=== PATIENT | male | born 1945 | race Caucasian/White ===

== ENCOUNTER → 2017-10-16 10:58 | Outpatient (CLI) | payer MEDICARE, MEDICAID, SELFPAY ==
[2017-10-16 13:16] LABS: Thyroid Stim Hormone (TSH) 3.03 uIU/mL (0.358-3.74)
== END ==
PROVIDERS: Family Provider Family Medicine; PCP Family Medicine; Visit Provider Family Medicine
DX: E03.9 Hypothyroidism, unspecified (principal)
CPT/HCPCS: 36415; 84443

== ENCOUNTER → 2018-04-18 11:31 | Outpatient (CLI) | payer MEDICARE, MEDICAID, SELFPAY ==
[2018-04-18 14:59] LABS: AST(SGOT) 22 U/L (15-37); Alanine Aminotransfer ALT/SGPT 27 U/L (16-61); Albumin, Serum 3.7 g/dL (3.2-5.0); Alkaline Phosphatase 91 U/L (45-117); Cholesterol 181 mg/dL (200); Free T3 2.9 pg/mL (2.18-3.98); Globulin 3.9 g/dL (2.2-4.2); High Density Lipoprotein 59 mg/dL; Protein, Total 7.6 g/dL (6.4-8.2); T4 Free Direct 0.95 ng/dL (0.76-1.46); Thyroid Stim Hormone (TSH) 3.46 uIU/mL (0.358-3.74); Triglycerides 102 mg/dL; Very Low Density Lipoprotein 20 mg/dL (5-40)
== END ==
PROVIDERS: Family Provider Family Medicine; PCP Family Medicine; Visit Provider Family Medicine
DX: E78.5 Hyperlipidemia, unspecified (principal); E03.9 Hypothyroidism, unspecified
CPT/HCPCS: 36415; 80061; 80076; 84439; 84443; 84481

== ENCOUNTER → 2018-10-17 10:33 | Outpatient (CLI) | payer MEDICARE, MEDICAID, SELFPAY ==
[2018-10-17 13:15] LABS: Anion Gap 9 (5-15); BUN 23 mg/dL (7-18); BUN/Creat Ratio 17.7 RATIO (10-20); Calcium,Total 8.7 mg/dL (8.5-10.1); Chloride 106 mmol/L (98-107); Cholesterol 186 mg/dL (200); EST Glomerular Filtration Rate 57 mL/min (>60); Est Glom Filt Rate - Afr Amer 69 mL/min (>60); Glucose 95 mg/dL (74-106); High Density Lipoprotein 63 mg/dL; Potassium 4.3 mmol/L (3.5-5.1); Sodium Level 138 mmol/L (136-145); Thyroid Stim Hormone (TSH) 3.69 uIU/mL (0.358-3.74); Triglycerides 82 mg/dL; Very Low Density Lipoprotein 16 mg/dL (5-40)
== END ==
PROVIDERS: Family Provider Family Medicine; PCP Family Medicine; Referring Provider Family Medicine; Visit Provider Family Medicine
DX: Z00.00 Encounter for general adult medical examination without abnormal findings (principal); E03.9 Hypothyroidism, unspecified
CPT/HCPCS: 36415; 80048; 80061; 84443

== ENCOUNTER → 2018-10-31 07:48 | Outpatient (CLI) | payer MEDICARE, MEDICAID, SELFPAY ==
[2018-10-24 10:21] VITALS: BMI 28.8
--- NOTE | 2018-10-31 07:52 | CT_ITS ---
STUDY: CT ABDOMEN AND PELVIS WITHOUT CONTRAST REASON FOR EXAM: Male, 72 years old. Left upper quadrant pain RADIATION DOSAGE (If Supplied By Facility): CTDIvol = ( 9.06 ) mGy, DLP = ( 461.89 ) mGycm TECHNIQUE: Transaxial images were obtained from the dome of the diaphragm to the symphysis pubis without oral contrast, and without intravenous contrast. Sagittal and coronal images were reconstructed. Individualized dose optimization techniques were used for this CT. COMPARISON: CT abdomen and pelvis 05/05/2013. FINDINGS: Lack of intravenous contrast limits evaluation of abdominal and pelvic organs. There is a small posterior left lower lobe calcified granuloma. The visualized portions of the heart are within normal limits. Normal liver. There are multiple gallstones. Normal spleen. Normal pancreas. Normal bilateral adrenal glands. Normal right kidney. There is a stable, partially exophytic left renal upper pole cyst. No hydronephrosis. Normal visualized stomach. Normal small intestine. There is mild sigmoid diverticulosis without evidence of acute diverticulitis.. The appendix is visualized and appears normal. There is diffuse atherosclerotic calcification of the abdominal aorta, without a demonstrated aneurysm. Normal inferior vena cava. Normal retroperitoneum. Normal urinary bladder. The prostate gland is markedly enlarged and indents the urinary bladder base. There is a small umbilical hernia containing fat. Normal osseous structures. CT/Abdomen/Pel W ORAL Cont Only IMPRESSION: No acute abdominal or pelvic pathology. Marked prostatomegaly. Stable chronic findings are described above. Electronically Signed: Sanket Olivia, at 16:22 EDT Tel , Service support ,
== END ==
PROVIDERS: Family Provider Family Medicine; PCP Family Medicine; Referring Provider Surgery; Visit Provider Surgery
DX: R10.9 Unspecified abdominal pain (principal)
CPT/HCPCS: 74176

== ENCOUNTER → 2019-05-02 11:58 | Outpatient (CLI) | payer MEDICARE, MEDICAID, SELFPAY ==
[2018-10-24 10:21] VITALS: BMI 28.8
[2019-05-02 14:25] LABS: Free T3 2.9 pg/mL (2.18-3.98); T4 Total, Thyroxin 6.8 ug/dL (4.5-12.1); Thyroid Stim Hormone (TSH) 3.07 uIU/mL (0.358-3.74)
== END ==
PROVIDERS: Family Provider Family Medicine; PCP Family Medicine; Referring Provider Family Medicine; Visit Provider Family Medicine
DX: E03.9 Hypothyroidism, unspecified (principal)
CPT/HCPCS: 36415; 84436; 84443; 84481

== ENCOUNTER → 2019-12-26 14:42 | Outpatient (CLI) | payer MEDICARE, MEDICAID, SELFPAY ==
[2018-10-24 10:21] VITALS: BMI 28.8
[2019-12-26 17:51] LABS: Anion Gap 6 (5-15); BUN 24 mg/dL (7-18); BUN/Creat Ratio 20.3 RATIO (10-20); Chloride 109 mmol/L (98-107); Cholesterol 179 mg/dL (200); Creatinine, Serum 1.18 mg/dL (0.70-1.30); EST Glomerular Filtration Rate 64 mL/min (>60); Est Glom Filt Rate - Afr Amer 77 mL/min (>60); Free T3 2.9 pg/mL (2.18-3.98); Glucose 93 mg/dL (74-106); High Density Lipoprotein 62 mg/dL; Sodium Level 139 mmol/L (136-145); T4 Total, Thyroxin 7.5 ug/dL (4.5-12.1); Thyroid Stim Hormone (TSH) 2.09 uIU/mL (0.358-3.74); Triglycerides 108 mg/dL; Very Low Density Lipoprotein 22 mg/dL (5-40)
== END ==
PROVIDERS: PCP Family Medicine; Referring Provider Family Medicine; Visit Provider Family Medicine
DX: E03.9 Hypothyroidism, unspecified (principal); E78.5 Hyperlipidemia, unspecified
CPT/HCPCS: 36415; 80048; 80061; 84436; 84443; 84481

== ENCOUNTER → 2020-07-06 18:28 | Outpatient (CLI) | payer MEDICARE, MEDICAID, SELFPAY ==
[2020-03-09 08:57] VITALS: BMI 28.8
== END ==
PROVIDERS: PCP Family Medicine; Visit Provider Family Medicine
DX: U07.1 COVID-19 (principal)
CPT/HCPCS: 87635; U0003

== ENCOUNTER 2020-07-15 11:06 | Emergency (ER) | payer MEDICARE, MEDICAID, SELFPAY ==
[2020-07-11 11:41] VITALS: BMI 28.8
[2020-07-15 11:07] VITALS: BP 153/122; PULSE 109; RESP 20; TEMP 36.6; O2SAT 96; BMI 27.3
[2020-07-15 11:20] VITALS: O2SAT 93
--- NOTE | 2020-07-15 11:25 | EKG12_ITS ---
Test Reason : SOB Blood Pressure : / mmHG Vent. Rate : 077 BPM Atrial Rate : 077 BPM P-R Int : 154 ms QRS Dur : 100 ms QT Int : 422 ms P-R-T Axes : 025 -21 -07 degrees QTc Int : 477 ms Normal sinus rhythm with sinus arrhythmia Possible Left atrial enlargement Left ventricular hypertrophy Abnormal ECG Confirmed by KAREN MARTIN, MARISSA ([id number]), restaurant expeditor KAL WHITAKER ([id number]) on 07/17/2020 2:03:45 PM Referred By: NINA/MAYE Confirmed By:MARISSA JONES MD
--- NOTE | 2020-07-15 11:26 | ED.DCSUM_ITS ---
- ER Visit Summary Date of Service: 07/15/20 Chief Complaint: [Shortness of breath] History of Present Illness: The patient is a 74 M [presents to the emergency department feeling short of breath over the last 3 to 4 days. Patient states that he was diagnosed with COVID-19 on July 06 and he had symptoms beginning on June 29. Patient states that overall he feels like he is had a mild case but he is concerned that his symptoms have been resolved and actually has become more short of breath over last 3 days. Patient states he really has not had much of a cough in the last 2 days but he is trying to breathe shallow so that he does not cough. When he does cough he does bring up some brown phlegm whereas initially his cough was nonproductive. He denies significant fevers and states he has been running temperatures only up to 99 at times. Patient's had intermittent chills and sweats but not over the last 2 days. Patient states that he was seen at urgent care 5 days ago and everything looked good. Patient does have history of COPD, alcohol abuse, chronic kidney disease, and anxiety.] Patient does not wear home O2. Patient does have a home pulse ox and states he has not dropped below 90% while at home. Physical Examination: [HEENT-PERRLA, EOMI. Cranial nerves II through XII grossly intact. TMs clear. Mucous membranes moist. No adenopathy. Cardiovascular-regular rate and rhythm without murmur or ectopy Lungs-good aeration bilaterally with few rales in the bases. No accessory muscle use or retractions. No significant tachypnea. Abdomen-normoactive bowel sounds, soft, nontender, no rebound or rigidity, no peritoneal signs. Extremities-intact ?4, normal range of motion, normal pulses, atraumatic] Test Results: [EKG obtained on arrival showed a sinus rhythm with a ventricular rate of 77 bpm with occasional PACs. Patient was noted to have some LVH. CBC with differential obtained showed a white of 7.5, hemoglobin 16, hematocrit 50, platelets 312. Chemistries were unremarkable. BUN was 16 and creatinine 1.16. Troponin was less than 0.015. D-dimer was elevated at 3.97. Chest x-ray showed some increased markings in the bases on my interpretation with no discrete pneumonic processes noted. Radiology in agreement. CTA of the chest was obtained which showed no evidence of PE or dissection. Patient had a left lower lobe nodule and some bilateral patchy infiltrates consistent with Covid. Could not rule out bacterial pneumonic process especially in the right upper lobe.] Emergency Department Course and Treatment: [Line established on arrival. Patient placed on a traffic monitor specialist.] Treatment Plan: [Patient will be started on Levaquin and advised to follow-up with primary care physician 5 to 7 days. Patient advised to return if increasi ng shortness of breath or condition should worsen anyway.] Disposition: [Discharged home in stable condition] Impression: [ COVID-19 pneumonia Dyspnea] This note was generated with [employer] dictation software. It may contain incorrect words, spelling, and punctuation that were not noted in review of the chart prior to signing ED Disposition - Plan for ED Patient: Referrals: Diego Diaz MD [Primary Care Provider] -
--- NOTE | 2020-07-15 11:40 | RAD_ITS ---
STUDY: X-RAY CHEST REASON FOR EXAM: Male, 74 years old. POSITIVE COVID. INCREASING SOB. TECHNIQUE: Single AP portable view of the chest. COMPARISON: 09/27/2013 FINDINGS: Poor inspiration with some bibasilar atelectasis. Slightly elevated left hemidiaphragm which is unchanged. There is moderate cardiac enlargement. Normal mediastinum and jamee. Normal visualized pulmonary arteries. Normal visualized aortic arch and descending thoracic aorta. Normal visualized thoracic spine. Normal visualized ribs, clavicles, and shoulders. There is no demonstrated abnormality of the visualized soft tissue structures of the upper abdomen. RAD/Chest 1 View (Portable) IMPRESSION: Poor inspiration with some bibasilar atelectasis. Electronically Signed: Kana Montalvo MD at 11:58 EST Tel , Service support ,
[2020-07-15 11:51] LABS: Absolute Lymphocyte Count 1.14 X10^3/uL (0.83-4.51); Absolute Neutrophil Count 5.4 X10^3/uL (2.0-7.7); Basophil# 0.03 X10^3/uL; Basophil% 0.4 % (0-1); Eosinophil# 0.07 X10^3/uL; Eosinophils% 0.9 % (0-5); Hemoglobin 16.1 g/dL (13.0-16.5); Lymphocyte # 1.14 X10^3/ul (4.0); Lymphocyte % 15.3 % (19-41); Mean Corp Hgb Conc 32.2 g/dL (32-36); Mean Corpuscular Hgb 26.6 pg (27.0-32.0); Mean Corpuscular Volume 82.6 fL (80-94); Mean Platelet Vol. 10.1 fl (6.2-12.0); Monocyte# 0.63 X10^3/uL; Monocyte% 8.5 % (0-10); NRBC Flagged by Analyzer 0 % (0-5); Neutrophil # 5.38 X10^3/uL (2.7-7.7); Neutrophil % 72.2 % (47-70); POSITIVE MORPHOLOGY YES; Platelet Count 312 K/mm3 (150-450); RBC Distribution Width CV 13.2 % (11.6-14.6); RBC Distribution Width SD 39.8 fl (35.1-43.9); Red Blood Count 6.05 M/mm3 (4.6-6.2); White Blood Count 7.5 K/mm3 (4.4-11.0)
[2020-07-15 11:58] LABS: Differential Indicated SCAN CRITERIA MET
[2020-07-15 12:03] LABS: D-Dimer Quantitative (DVT/PE) 3.97 FEU/ug/m (0.27-0.49)
--- NOTE | 2020-07-15 12:04 | CT_ITS ---
STUDY: CTA CHEST REASON FOR EXAM: Male, 74 years old. ELEV DDIMER/SOB/COVID + AND COPD RADIATION DOSAGE (If Supplied By Facility): CTDIvol = ( 10.49 ) mGy, DLP = ( 462.44 ) mGycm TECHNIQUE: The examination was performed with the intravenous administration of IV 100mL Isovue-370. Post-processing of the angiographic images was performed, with multiplanar reformation and 3D reconstruction. Individualized dose optimization techniques were used for this CT. COMPARISON: 05/20/2012 FINDINGS: Normal enhancement of the main pulmonary artery and right and left pulmonary arteries. Normal enhancement of the bilateral peripheral pulmonary arteries. There is no demonstrated pulmonary embolism. Normal thoracic aorta and visualized great vessels. There is no demonstrated aortic dissection. Normal heart and pericardium. There are calcifications of the coronary arteries. Normal mediastinum. Normal hilar regions. Normal visualized trachea and bronchi. The lungs are well expanded. Mild emphysematous changes. Bilateral peripheral groundglass opacities consistent with subsegmental atelectasis or pneumonitis. Small focal alveolar density in the superior segment the right lower lobe consistent with pneumonia. Some dependent bibasilar atelectasis and scarring. 6 mm noncalcified nodule subpleural the superior segment left lower lobe the lungs on image 140 one and follow-up CT is recommended in 6 months document stability. Normal pleura. Normal chest wall structures. Normal osseous structures. Normal visualized upper abdomen. CT/CTA Chest W/WO Contrast IMPRESSION: 1. No CT evidence of pulmonary embolism. 2. Bilateral subsegmental atelectasis or pneumonitis with some focal pneumonia in the superior segment the right lower lobe. Commonly reported imaging features of Covid 19 pneumonia are present. Other processes such as influenza pneumonia and organizing pneumonia, as can be seen with drug toxicity and connective tissue disease, can cause a similar imaging pattern. 3. 6 mm noncalcified left lower lobe nodule and follow-up CT the chest is recommended in 6 months document stability. Electronically Signed: Kana Montalvo MD at 13:25 EST Tel , Service support ,
[2020-07-15 12:07] LABS: Anion Gap 10 (5-15); BUN 16 mg/dL (7-18); BUN/Creat Ratio 13.8 RATIO (10-20); Calcium,Total 9.1 mg/dL (8.5-10.1); Chloride 103 mmol/L (98-107); Creatinine, Serum 1.16 mg/dL (0.70-1.30); EST Glomerular Filtration Rate 65 mL/min (>60); Est Glom Filt Rate - Afr Amer 79 mL/min (>60); Glucose 122 mg/dL (74-106); Potassium 3.5 mmol/L (3.5-5.1); Sodium Level 134 mmol/L (136-145)
[2020-07-15 13:12] VITALS: BP 144/99; PULSE 77; RESP 24; O2SAT 93
--- NOTE | 2020-07-15 14:03 | ED.DEP ---
ED Disposition - Plan for ED Patient: Instructions: Coronavirus Disease 2019 (COVID-19): Overview Referrals: Diego Diaz MD [Primary Care Provider] - 3-5 Days
--- NOTE | 2020-07-15 14:58 | ED.DEP ---
ED Disposition - Plan for ED Patient: Instructions: Coronavirus Disease 2019 (COVID-19): Overview Prescriptions: levoFLOXacin tablet [Levaquin tablet] 750 mg PO DAILY #4 tab Prescription Printed Referrals: Diego Diaz MD [Primary Care Provider] - 3-5 Days
[2020-07-15] MEDS: levoFLOXacin 750 MG Tablet PO (15:04)
[2020-07-15 15:05] VITALS: BP 136/78; PULSE 63; RESP 18; O2SAT 94
[2020-07-15 15:44] LABS: Reflex Lactate? Y
== END 2020-07-15 15:08 | disposition home or self-care (01) ==
LOC: ED 12:01
PROVIDERS: Emergency Provider Emergency Medicine; PCP Family Medicine
DX: U07.1 COVID-19 (principal); J12.89 Other viral pneumonia; J44.0 Chronic obstructive pulmonary disease with (acute) lower respiratory infection; N18.9 Chronic kidney disease, unspecified; F41.9 Anxiety disorder, unspecified
CPT/HCPCS: 71045; 71275; 80048; 83605; 84484; 85025; 85379; 87040; 93005; 99285; Q9967

== ENCOUNTER → 2020-07-20 12:55 | Outpatient (CLI) | payer MEDICARE, MEDICAID, SELFPAY | PROVIDERS: PCP Family Medicine; Referring Provider Physician Assistant Surgical; Visit Provider Physician Assistant Surgical | DX: R05 Cough (principal) | CPT/HCPCS: 87635; U0003 ==

== ENCOUNTER → 2020-07-29 15:00 | Outpatient (CLI) | payer MEDICARE, MEDICAID, SELFPAY ==
[2020-07-29 18:23] LABS: Anion Gap 10 (5-15); BUN 25 mg/dL (7-18); BUN/Creat Ratio 21.6 RATIO (10-20); Calcium,Total 8.9 mg/dL (8.5-10.1); Chloride 102 mmol/L (98-107); Cholesterol 161 mg/dL (200); Creatinine, Serum 1.16 mg/dL (0.70-1.30); EST Glomerular Filtration Rate 65 mL/min (>60); Est Glom Filt Rate - Afr Amer 79 mL/min (>60); Free T3 2.5 pg/mL (2.18-3.98); Glucose 85 mg/dL (74-106); High Density Lipoprotein 56 mg/dL; Potassium 4.1 mmol/L (3.5-5.1); Sodium Level 135 mmol/L (136-145); T4 Total, Thyroxin 7.2 ug/dL (4.5-12.1); Thyroid Stim Hormone (TSH) 3.46 uIU/mL (0.358-3.74); Triglycerides 88 mg/dL; Very Low Density Lipoprotein 18 mg/dL (5-40)
== END ==
PROVIDERS: PCP Family Medicine; Referring Provider Family Medicine; Visit Provider Family Medicine
DX: E03.9 Hypothyroidism, unspecified (principal); E78.5 Hyperlipidemia, unspecified
CPT/HCPCS: 36415; 80048; 80061; 84436; 84443; 84481

== ENCOUNTER 2021-05-31 15:51 | Emergency (ER) | payer MEDICARE, MEDICAID, SELFPAY ==
[2021-05-31] VITALS (16 sets, daily range): BP systolic 69–164; BP diastolic 18–99; PULSE 76–98; RESP 12–29; TEMP -17.7–36.2; O2SAT 91–99; BMI 24.8
--- NOTE | 2021-05-31 15:53 | CT_ITS ---
STUDY: CT BRAIN WITHOUT CONTRAST REASON FOR EXAM: Male, 75 years old. Found down, unresponsive RADIATION DOSAGE (If Supplied By Facility): CTDIvol = ( 44.99 ) mGy, DLP = ( 883.29 ) mGycm TECHNIQUE: Transaxial CT imaging of the brain was performed without administration of intravenous contrast material. Individualized dose optimization techniques were used for this CT. COMPARISON: No relevant priors. FINDINGS: Normal soft tissue structures. Normal calvarium. There is mild cerebral atrophy with widening of the extra-axial spaces and ventricular dilatation. Multifocal subarachnoid hemorrhage involving the bilateral frontal and parietal lobes. Left more than right intraventricular hemorrhage layers dependently. Central parenchymal volume loss. White matter changes that are nonspecific but most commonly associated with chronic small vessel ischemic disease. Normal basal ganglia and thalami. Normal brainstem. Normal cerebellum. Rounded focal hyperdensity of the midline suprasellar region. There are no findings of an acute ischemic infarction. Normal visualized paranasal sinuses. CT/Brain/Head without Contrast IMPRESSION: Diffuse subarachnoid hemorrhage with intraventricular hemorrhage. Localized hyperdensity of the suprasellar region suggests possibility of ruptured aneurysm. N.B. : The above Results were Read Back by Corey Covarrubias MD (Brooks) to Armand Kelly MD, and understanding confirmed on 05/31/2021 16:40:36 (ET). Electronically Signed: Corey Covarrubias MD (Brooks) at 16:41 EDT , Service support ,
--- NOTE | 2021-05-31 15:53 | EKG12_ITS ---
Test Reason : UNRESPONSIVE Blood Pressure : / mmHG Vent. Rate : 087 BPM Atrial Rate : 087 BPM P-R Int : 130 ms QRS Dur : 092 ms QT Int : 432 ms P-R-T Axes : 048 -15 050 degrees QTc Int : 519 ms Normal sinus rhythm Left ventricular hypertrophy Prolonged QT Abnormal ECG Confirmed by CANDELARIA MARTIN, YSABEL ([id number]), book or script editor KAL WHITAKER ([id number]) on 06/02/2021 9:25:20 AM Referred By: JARVIS Confirmed By:YSABEL GAONA MD
--- NOTE | 2021-05-31 16:00 | RAD_ITS ---
STUDY: X-RAY - PELVIS REASON FOR EXAM: Male, 75 years old. trauma TECHNIQUE: One view of the pelvis was obtained. COMPARISON: None. FINDINGS: There is a non-specific bowel gas pattern. Normal visualized soft tissue structures. Normal bilateral iliac wings, sacroiliac joints and visualized sacrum. Normal visualized bilateral superior and inferior pubic rami. Normal pubic symphysis. Normal ischial tuberosities. Normal visualized right femoral head. Normal right acetabulum. Normal right hip joint. Normal visualized left femoral head. Normal left acetabulum. Normal left hip joint. RAD/Pelvis 1 or 2 Views IMPRESSION: Normal x-ray examination of the pelvis. Electronically Signed: Kana Montalvo MD at 16:51 EDT Tel , Service support ,
--- NOTE | 2021-05-31 16:00 | CT_ITS ---
EXAM: CT CERVICAL SPINE WITHOUT INTRAVENOUS CONTRAST CLINICAL INDICATION: Found face down, unresponsive TECHNIQUE: Helically acquired images were obtained of the cervical spine without intravenous contrast. 2D reformatted images were reviewed. This CT exam was performed using one or more of the following dose reduction techniques: automated exposure control, adjustment of the mA and/or kV according to patient size, and/or use of iterative reconstruction technique. This report was created using [employer] report generation technology. COMPARISON: None. FINDINGS: VERTEBRAE: Anterior spondylosis at multiple cervical levels. Grade 1 degenerative anterolisthesis of C7-T1. No fracture. No discrete lytic or blastic abnormality. DISCS/SPINAL CANAL/NEURAL FORAMINA: Disc space narrowing throughout the cervical spine. SOFT TISSUES: Unremarkable. No prevertebral soft tissue swelling. VASCULATURE: Air in the nondependent portion of the bilateral jugular veins likely vascular access related. LYMPH NODES: Unremarkable. No cervical adenopathy. LUNG APICES: Unremarkable as visualized. Clear. BRAIN: Intraventricular and subarachnoid hemorrhage described on head CT report. OTHER FINDINGS: Bilateral facet arthropathy at multiple cervical levels. CT/Spine Cervical without Contras IMPRESSION: No cervical spine fracture or traumatic subluxation. Electronically Signed: Corey Covarrubias MD (Brooks) at 16:43 EDT , Service support ,
--- NOTE | 2021-05-31 16:00 | RAD_ITS ---
STUDY: X-RAY - RIGHT KNEE REASON FOR EXAM: Male, 75 years old. FOUND UNRESPONSIVE ON BATHROOM FLOOR. LAST SEEN [facility]. RIGHT KNEE WOUND. TECHNIQUE: 2 view(s) of the knee. COMPARISON: None. FINDINGS: Normal visualized distal femur. Normal visualized proximal tibia and fibula. Normal proximal tibiofibular articulation. Normal medial femorotibial compartment. Normal lateral femorotibial compartment. Normal patellofemoral articulation. There is no demonstrated joint effusion. There are atherosclerotic calcifications. RAD/Knee 1 or 2 Views IMPRESSION: No fracture or malalignment. Electronically Signed: Corey Covarrubias MD (Brooks) at 16:47 EDT , Service support ,
--- NOTE | 2021-05-31 16:01 | EDS_ITS ---
HPI History of Present Illness Chief Complaint: Unresponsive Informant: EMS Narrative Narrative: Patient is by EMS. He is nonverbal and I can get no information at all from him. I can get no review of systems because of this. I did do a chart review. This patient has a history of cholesterol, high blood pressure, thyroid disease, COPD but I believe he is not on oxygen, and chronic kidney disease. EMS thinks that somebody did a welfare check on him because he had not been seen since Monday. Somebody found him or EMS found him face down on his floor near the bathroom. No further details known. Because of his illness and nonverbal status I cannot get further information. [facility] Medical History (Updated 05/31/21 @ 18:[address] Stephen Woodward MD) Anxiety disorder Chronic kidney disease Chronic obstructive lung disease History of alcoholism History of fall History of urinary tract infection HTN (hypertension) Home Medications aspirin 81 mg tablet,delayed release 81 mg PO DAILY 03/09/20 [History Last Taken Unknown] atorvastatin 10 mg tablet 10 mg PO DAILY 03/09/20 [History Last Taken Unknown] finasteride 5 mg tablet 5 mg PO DAILY 03/09/20 [History Last Taken Unknown] levothyroxine 25 mcg tablet 25 mcg PO DAILY 03/09/20 [History Last Taken Unknown] pantoprazole 20 mg tablet,delayed release 20 mg PO DAILY 03/09/20 [History Last Taken Unknown] Allergy/AdvReac Type Severity Reaction Status Date / Time No Known Allergies Allergy Verified 07/20/20 10:33 Surgical History S/P percutaneous endoscopic gastrostomy (PEG) tube placement S/P tonsillectomy and adenoidectomy Status post tracheostomy Surgical History no surgical history no surgical history Social History Smoking Status: Current some day smoker tobacco type: cigarettes alcohol intake: current alcohol intake frequency: a few times a month ROS ROS ED Review of Systems ROS Unobtainable: due to encephalopathy and other Details: See history of present illness. Review of systems is completely unobtainable. EXAM Physical Exam Const Vital Signs: 05/31/21 15:52 05/31/21 15:56 05/31/21 15:59 Temperature 0 F L 97.1 F L Temperature Source Temporal Temporal Pulse Rate 89 86 Respiratory Rate 28 H 28 H Respiratory Pattern Blood Pressure 85/18 L 85/18 L Blood Pressure Mean 40 40 Pulse Ox 93 93 Oxygen Delivery Method Non-Rebreather Non-Rebreather Non-Rebreather Oxygen Flow Rate (L/min) 15 158 15 Fraction of Inspired Oxygen (FIO2) 05/31/21 16:28 05/31/21 16:52 05/31/21 17:19 Temperature 96.3 F L 96.4 F L Temperature Source Core Core Pulse Rate 76 78 Respiratory Rate 29 H 12 Respiratory Pattern Normal Blood Pressure 115/87 H Blood Pressure Mean 96 Pulse Ox 99 99 Oxygen Delivery Method Non-Rebreather Oxygen Flow Rate (L/min) 15 Fraction of Inspired Oxygen (FIO2) 100 05/31/21 17:25 05/31/21 17:27 05/31/21 17:30 Temperature 96.5 F L Temperature Source Core Pulse Rate 82 Respiratory Rate 16 Respiratory Pattern Blood Pressure 107/73 Blood Pressure Mean 84 Pulse Ox 99 99 98 Oxygen Delivery Method Mechanical Ventilator Oxygen Flow Rate (L/min) Fraction of Inspired Oxygen (FIO2) 35 35 05/31/21 17:33 05/31/21 17:42 05/31/21 17:52 Temperature 96.5 F L 96.6 F L Temperature Source Tympanic Core Pulse Rate 83 78 77 Respiratory Rate 25 H 29 H 24 H Respiratory Pattern Tachypnea Blood Pressure 164/99 H 69/37 L Blood Pressure Mean 120 47 Pulse Ox 97 98 97 Oxygen Delivery Method Mechanical Ventilator Mechanical Ventilator Oxygen Flow Rate (L/min) Fraction of Inspired Oxygen (FIO2) 35 05/31/21 18:00 05/31/21 18:19 05/31/21 18:20 Temperature 96.7 F L 96.9 F L Temperature Source Core Core Pulse Rate 79 85 80 Respiratory Rate 21 H 26 H 16 Respiratory Pattern Tachypnea Blood Pressure 81/56 L 95/58 L Blood Pressure Mean 64 70 Pulse Ox 97 91 98 Oxygen Delivery Method Mechanical Ventilator Mechanical Ventilator Oxygen Flow Rate (L/min) Fraction of Inspired Oxygen (FIO2) 35 35 05/31/21 18:38 05/31/21 19:31 Temperature 97.2 F L Temperature Source Core Pulse Rate 98 78 Respiratory Rate 16 20 H Respiratory Pattern Blood Pressure 108/60 92/62 Blood Pressure Mean 76 72 Pulse Ox 98 98 Oxygen Delivery Method Mechanical Ventilator Oxygen Flow Rate (L/min) Fraction of Inspired Oxygen (FIO2) 35 Patient looks thin. He is not speaking or providing any independent motion. He has GCS of 3. He has multiple areas of his body with what appear to be pressure sores and bruising. There is drainage from the nose. No stool is noted. Positive unkempt General Appearance ED: unkempt; Negative for diaphoretic HEENT Reports dry mucous membranes HEENT Narrative: Patient has contusions to his forehead mostly on the right side. Mucous membranes are quite dry. He has poor dentition with multiple missing teeth and multiple fillings. He does not allow opening of his mouth with a tongue blade. He does resist this. trauma Mouth ED: Yes dry mucous membranes Mouth: dry mucous membranes Eyes Eyes Narrative: Pupils are small at about 1 to 1-1/2 mm. They are equal. There appears to be no visual response to confrontation or lid touch. General Eye ED: Negative for pale conjunctiva or scleral icterus Neck supple and no JVD Resp Resp Narrative: Patient is breathing well on his own. His sats are maintained while on oxygen. He has mildly coarse breath sounds bilaterally but this may be upper airway sounds. I do not hear rales. Auscultation: rhonchi; Negative for rales Cardio regular rate and regular rhythm GI normal to inspection, nondistended, normoactive bowel sounds and non-tender GI Narrative: Rectal exam showed no black or bloody stool. He does have a fair amount of bruising in the sacral area and right buttock more than the left. Palpation: soft Narrative: Normal penis. Aguero is placed without difficulty with moderately yellow urine. Back/Spine Back/Spine Narrative: Patient does have some mild contusions on the right flank area. These appear to be small and focal and do not appear to be consistent wi th Abdulaziz's sign. Extremity Extremity Narrative: No deformities are noted. He does appear to have some slightly poor perfusion of his feet. They are somewhat cool. They are slightly cyanotic with poor capillary refill but only found in the distal feet. He has significant contusions and abrasions more on his right side than his left. The most notable is as significant pressure changes to the medial aspect of his right knee. Neuro Neuro Narrative: Patient makes no purposeful motion. No response with voice. GCS of 3. Psych Psych Narrative: Not able to be a assessed due to clinical condition Appearance: unkempt Skin Skin Narrative: Multiple small contusions abrasions and pressure ulcers throughout. Most of these are on the right side of his body more than the left. MDM MDM MDM Narrative Medical decision making narrative: 16: 15 Patient's been rechecked twice. Temperature little over 96 degrees. His fluids are being warmed and he is on a Caleb hugger to get him warmer. Blood pressure was a bit low he is getting IV fluids. I have seen his ABG that has a pH of 7.398 with PCO2 of 30. He certainly has some component of metabolic acidosis with a respiratory compensation. We are awaiting further results. Intubation was performed with 4 Kirill glide scope on first attempt without difficulties. Good breath sounds bilaterally and easy Change. Post intubation film shows good position. It also shows good position of NG tube. NG tube was placed by myself. There had been some difficulties placing it so I reinserted glide scope so I could see where it was placed we were able to get it down without difficulty or bleeding. X-ray showed good position. Patient's blood pressure came up well with fluids. Is starting to drift down. We are giving more fluids. By history, clinical exam and labs this patient is severely dehydrated and will need fluids. I have had multiple calls to facilities to get transfer. [facility] did not have beds. We were able to get him accepted by Dr. Margoth Pichardo at [facility]. I have also discussed the case with [facility] [place] transport. They are not flying due to low visibility and low ceiling. We made multiple calls to for transport. We are able to get this accelerated beyond what was going to be 3 hours. Lab Data Labs: Laboratory Results - last 24 hr 05/31/21 05/31/21 05/31/21 16:01 16:02 16:02 WBC 26.1 H RBC 6.88 H Hgb 19.8 H* Hct 58.2 H MCV 84.6 MCH 28.8 MCHC 34.0 RDW Std Deviation 42.0 RDW Coeff of Jose 14.4 Plt Count 265 MPV 11.2 Immature Gran % (Auto) 1.300 H Neut % (Auto) 90.2 H Lymph % (Auto) 3.9 L [place] % (Auto) 4.1 Eos % (Auto) 0.2 Baso % (Auto) 0.3 Absolute Neuts (auto) 23.5 H Absolute Lymphs (auto) 1.02 Nucleated RBC % 0 Differential Comment SCANNED Diff Path Review May foll PT Cancelled INR Cancelled APTT Cancelled Sodium Potassium Chloride Carbon Dioxide Anion Gap BUN Creatinine Estim Creat Clear Calc Est GFR (MDRD) Af Amer Est GFR (MDRD) Non-Af BUN/Creatinine Ratio Glucose Lactic Acid Calcium Total Bilirubin AST ALT Alkaline Phosphatase Total Creatine Kinase Troponin I High Sens B-Natriuretic Peptide Total Protein Albumin Globulin Albumin/Globulin Ratio Lipase TSH Urine Color Yellow Urine Clarity Sl. Cloudy Urine pH 6.0 Ur Specific Berne 1.020 Urine Protein 30 H Urine Glucose (UA) Normal Urine Ketones 5 H Urine Occult Blood Negative Urine Nitrite Negative Urine Bilirubin 1 H Urine Urobilinogen 4 H Ur Leukocyte Esterase 25 H Urine RBC 0 SEEN Urine WBC 0-5 SEEN Ur Squamous Epith Cells 0-5 SEEN Urine Bacteria 0 SEEN Hyaline Casts 10-25 SEEN Urine Mucus 0 SEEN Ethyl Alcohol POC Glucose 05/31/21 05/31/21 05/31/21 16:02 16:02 16:02 WBC RBC Hgb Hct MCV MCH MCHC RDW Std Deviation RDW Coeff of Jose Plt Count MPV Immature Gran % (Auto) Neut % (Auto) Lymph % (Auto) [place] % (Auto) Eos % (Auto) Baso % (Auto) Absolute Neuts (auto) Absolute Lymphs (auto) Nucleated RBC % Differential Comment Diff Path Review PT INR APTT Sodium 144 Potassium 4.1 Chloride 107 Carbon Dioxide 17.0 L Anion Gap 20 H BUN 130 H* Creatinine 4.45 H Estim Creat Clear Calc 14.58 Est GFR (MDRD) Af Amer 17 L Est GFR (MDRD) Non-Af 14 L BUN/Creatinine Ratio 29.2 H Glucose 154 H Lactic Acid 4.6 H* Calcium 8.9 Total Bilirubin 2.90 H AST 37 ALT 40 Alkaline Phosphatase 101 Total Creatine Kinase Troponin I High Sens 164 H* B-Natriuretic Peptide 90.9 Total Protein 7.6 Albumin 2.7 L Globulin 4.9 H Albumin/Globulin Ratio 0.6 L Lipase 311 TSH 2.74 Urine Color Urine Clarity Urine pH Ur Specific Berne Urine Protein Urine Glucose (UA) Urine Ketones Urine Occult Blood Urine Nitrite Urine Bilirubin Urine Urobilinogen Ur Leukocyte Esterase Urine RBC Urine WBC Ur Squamous Epith Cells Urine Bacteria Hyaline Casts Urine Mucus Ethyl Alcohol POC Glucose 05/31/21 05/31/21 05/31/21 16:02 16:02 16:10 WBC RBC Hgb Hct MCV MCH MCHC RDW Std Deviation RDW Coeff of Jose Plt Count MPV Immature Gran % (Auto) Neut % (Auto) Lymph % (Auto) [place] % (Auto) Eos % (Auto) Baso % (Auto) Absolute Neuts (auto) Absolute Lymphs (auto) Nucleated RBC % Differential Comment Diff Path Review PT INR APTT Sodium Potassium Chloride Carbon Dioxide Anion Gap BUN Creatinine Estim Creat Clear Calc Est GFR (MDRD) Af Amer Est GFR (MDRD) Non-Af BUN/Creatinine Ratio Glucose Lactic Acid Calcium Total Bilirubin AST ALT Alkaline Phosphatase Total Creatine Kinase 794 H Troponin I High Sens B-Natriuretic Peptide Total Protein Albumin Globulin Albumin/Globulin Ratio Lipase TSH Urine Color Urine Clarity Urine pH Ur Specific Berne Urine Protein Urine Glucose (UA) Urine Ketones Urine Occult Blood Urine Nitrite Urine Bilirubin Urine Urobilinogen Ur Leukocyte Esterase Urine RBC Urine WBC Ur Squamous Epith Cells Urine Bacteria Hyaline Casts Urine Mucus Ethyl Alcohol Cancelled POC Glucose 172 H 05/31/21 05/31/21 16:55 16:55 WBC RBC Hgb Hct MCV MCH MCHC RDW Std Deviation RDW Coeff of Jose Plt Count MPV Immature Gran % (Auto) Neut % (Auto) Lymph % (Auto) [place] % (Auto) Eos % (Auto) Baso % (Auto) Absolute Neuts (auto) Absolute Lymphs (auto) Nucleated RBC % Differential Comment Diff Path Review PT 15.6 H INR 1.3 APTT 21.7 L Sodium Potassium Chloride Carbon Dioxide Anion Gap BUN Creatinine Estim Creat Clear Calc Est GFR (MDRD) Af Amer Est GFR (MDRD) Non-Af BUN/Creatinine Ratio Glucose Lactic Acid Calcium Total Bilirubin AST ALT Alkaline Phosphatase Total Creatine Kinase Troponin I High Sens B-Natriuretic Peptide Total Protein Albumin Globulin Albumin/Globulin Ratio Lipase TSH Urine Color Urine Clarity Urine pH Ur Specific [place] Urine Protein Urine Glucose (UA) Urine Ketones Urine Occult Blood Urine Nitrite Urine Bilirubin Urine Urobilinogen Ur Leukocyte Esterase Urine RBC Urine WBC Ur Squamous Epith Cells Urine Bacteria Hyaline Casts Urine Mucus Ethyl Alcohol < 3.0 POC Glucose ABG Data ABG results: ABG 05/31/21 05/31/21 16:12 18:25 Specimen Type ART ART Sample Site L Brach R Brach pH 7.40 7.40 Bicarbonate Actual 18.5 L 17.9 L Total CO2 19 19 Base Excess -6 L -7 L O2 Saturation 100 H 97 O2 % 35 ABG pCO2 30.0 L 29.0 L ABG pO2 172 H 93 El Test Positive N/A Respiration Rate 12 O2 Delivery Device NRB Adult Vent Vent Mode AC Tidal Volume 450 POC PEEP 5 Radiography Diagnostic Testing: Clinical Impression(s) from Imaging Studies Brain CT 05/31/21 15:53 IMPRESSION: Diffuse subarachnoid hemorrhage with intraventricular hemorrhage. Localized hyperdensity of the suprasellar region suggests possibility of ruptured aneurysm. N.B. : The above Results were Read Back by Corey Covarrubias MD (Brooks) to Armand Kelly MD, and understanding confirmed on 05/31/2021 16:40:36 (ET). Electronically Signed: Corey Covarrubias MD (Brooks) at 16:41 EDT , Service support , ADDENDUM: 05/31/21 1648 IMPRESSION: Diffuse subarachnoid hemorrhage with intraventricular hemorrhage. Localized hyperdensity of the suprasellar region suggests possibility of ruptured aneurysm. N.B. : The above Results were Read Back by Corey Covarrubias MD (Brooks) to Armand Kelly MD, and understanding confirmed on 05/31/2021 16:40:36 (ET). Electronically Signed: Corey Covarrubias MD (Brooks) at 16:41 EDT , Service support , Cervical Spine CT 05/31/21 16:00 IMPRESSION: No cervical spine fracture or traumatic subluxation. Electronically Signed: Corey Covarrubias MD (Brooks) at 16:43 EDT , Service support , Knee X-Ray 05/31/21 16:00 IMPRESSION: No fracture or malalignment. Electronically Signed: Corey Covarrubias MD (Brooks) at 16:47 EDT , Service support , Pelvis X-Ray 05/31/21 16:00 IMPRESSION: Normal x-ray examination of the pelvis. Electronically Signed: Kana Montalvo MD at 16:51 EDT Tel , Service support , Chest X-Ray 05/31/21 16:25 IMPRESSION: No airspace consolidation or pleural effusion. Electronically Signed: Corey Covarrubias MD (Brooks) at 16:46 EDT , Service support , Chest X-Ray 05/31/21 17:35 IMPRESSION: 1. Interval placement of endotracheal tube with the tip above the que. 2. Interval placement of nasogastric tube with tip below the diaphragm. 3. No active disease. Electronically Signed: Kana Montalvo MD at 17:54 EDT Tel , Service support , EKG Initial EKG: Comments: EKG done as part of medical work-up read by me shows a sinus rhythm with overall rate of 87. No ectopy. Mild diffuse changes and LVH. CT interval QRS duration is normal. He does have a long QTC. Procedures Intubations Intubation Method: orotracheal (I discussed risk benefits and indications with the patient's son. Intubation was done with 20 of etomidate and 100 of succinylcholine. [place] scope with 4 Kirill blade was used. Intubation on first attempt. Good color change. No desaturations. Post intubation film shows good position of endo) Intubation Verification: Positive color change and Bilateral breath sounds confirmed Intubation Complications: no complications Critical Care Time Critical Care Time: Yes Critical care time (excluding procedures): 30-74 minutes and - (Critical care time of 50 minutes. This was exclusive and separate from time for intubation. I talk with multiple consultants, family, reviewed data, altered therapy. He was a critical risk of decompensation due to severe dehydration, acute kidney injury and subarachnoid hemorrhage with decreased ) Discharge Plan Triage Chief Complaint: Unresponsive ED Provider: Stephen Woodward Dx/Rx/DC Orders Clinical Impression: Subarachnoid hemorrhage, Acute kidney injury, Dehydration, Hypotension, Lactic acidosis Prescriptions: No Action atorvastatin 10 mg tablet 10 mg PO DAILY RF: 0 levothyroxine 25 mcg tablet 25 mcg PO DAILY RF: 0 pantoprazole 20 mg tablet,delayed release (DR/EC) 20 mg PO DAILY RF: 0 finasteride 5 mg tablet 5 mg PO DAILY RF: 0 aspirin 81 mg tablet,delayed release (DR/EC) 81 mg PO DAILY RF: 0 Primary Care Provider: Diego Diaz Referrals: Diego Diaz MD [Primary Care Provider] - Disposition Disposition: Acute Care Hospital Discharge Location: [facility] Discharge Date/Time: 05/31/21 19:32
[2021-05-31] MEDS: 0.9% Normal Saline 1,000 ML 999 ML IV ×3 (16:04→17:53)
[2021-05-31 16:15] LABS: Bacteria 0 SEEN /hpf (None Seen); Mucous, Urine 0 SEEN /hpf (<or=2+); Red Blood Cells-Urine 0 SEEN /hpf (0-5)
[2021-05-31 16:16] LABS: Bedside Glucose 172 mg/dL (70-110)
[2021-05-31 16:20] LABS: Allen Test Positive; Base Excess -6 mmol/L (-2 to +2); Bicarbonate 18.5 mmol/L (22-26); Blood Gas Specimen Type ART; O2 Delivery Device NRB; PO2 172 mmHG (75-100); SITE L Brach; SO2 100 % (95-99); Total Carbon Dioxide 19 mmol/L
--- NOTE | 2021-05-31 16:25 | RAD_ITS ---
STUDY: X-RAY CHEST REASON FOR EXAM: Male, 75 years old. Hypoxia TECHNIQUE: AP COMPARISON: 07/15/2020 FINDINGS: EKG leads project over the chest. Stable elevation left hemidiaphragm. No airspace consolidation. There is no demonstrated pleural abnormality. Normal size heart. Normal mediastinum and jamee. Normal visualized pulmonary arteries. There is atherosclerotic calcification of the aortic arch with tortuosity. No acute bony process. There is no demonstrated abnormality of the visualized soft tissue structures of the upper abdomen. RAD/Chest 1 View (Portable) IMPRESSION: No airspace consolidation or pleural effusion. Electronically Signed: Corey Covarrubias MD (Brooks) at 16:46 EDT , Service support ,
[2021-05-31 16:26] LABS: Color, Urine Yellow (Yellow); Glucose, Dipstick Normal (Normal); Ketone-Dipstick 5 mg/dl (Negative); Leukocyte Esterase-Dipstick 25 /ul (Negative); Nitrite-Dipstick Negative (Negative); Occult Blood-Urine Negative /ul (Negative); Protein-Dipstick 30 mg/dl (Negative); Urine Clarity Sl. Cloudy (Clear); Urine Urobilinogen 4 mg/dl (Normal)
[2021-05-31 16:33] LABS: Absolute Lymphocyte Count 1.02 X10^3/uL (0.83-4.51); Absolute Neutrophil Count 23.5 X10^3/uL (2.0-7.7); Basophil# 0.07 X10^3/uL; Basophil% 0.3 % (0-1); Eosinophil# 0.05 X10^3/uL; Eosinophils% 0.2 % (0-5); Lymphocyte # 1.02 X10^3/ul (0.83-4.51); Lymphocyte % 3.9 % (19-41); Mean Corpuscular Hgb 28.8 pg (27.0-32.0); Mean Corpuscular Volume 84.6 fL (80-94); Mean Platelet Vol. 11.2 fl (6.2-12.0); Monocyte# 1.08 X10^3/uL; Monocyte% 4.1 % (0-10); NRBC Flagged by Analyzer 0 % (0-5); Neutrophil # 23.49 X10^3/uL (2.7-7.7); Neutrophil % 90.2 % (47-70); POSITIVE DIFFERENTIAL YES; Platelet Count 265 K/mm3 (150-450); RBC Distribution Width CV 14.4 % (11.6-14.6); Red Blood Count 6.88 M/mm3 (4.6-6.2); White Blood Count 26.1 K/mm3 (4.4-11.0)
[2021-05-31 16:37] LABS: Differential Indicated SCAN CRITERIA MET; Hematocrit 58.2 % (40-54)
[2021-05-31 16:38] LABS: Hemoglobin 19.8 g/dL (13.0-16.5)
[2021-05-31 16:47] LABS: Urine Bilirubin Dipstick 1 mg/dL (Negative)
[2021-05-31 16:52] LABS: Hyaline Cast 10-25 SEEN /lpf (0-5); Squamous Epithelial Cells - UA 0-5 SEEN /hpf (0-5); White Blood Cells 0-5 SEEN /hpf (0-5)
[2021-05-31 16:57] LABS: Differential Comment SCANNED
[2021-05-31 16:58] LABS: CPK Total, Creatine Kinase 794 U/L (39-308)
[2021-05-31 17:07] LABS: BNP,B-Type NATRIURETIC PEPTIDE 90.9 pg/mL (0-100)
[2021-05-31] MEDS: Etomidate 20 MG/10 ML Vial IV (17:17)
[2021-05-31] MEDS: Succinylcholine Chloride 200 MG/10 ML Vial 100 MG IV (17:18)
[2021-05-31 17:22] LABS: International Normalized Ratio 1.3; Prothrombin Time (Protime)PT. 15.6 SECONDS (11.7-14.9)
[2021-05-31 17:23] LABS: Partial Thromboplast Time 21.7 Seconds (24.1-36.2)
--- NOTE | 2021-05-31 17:35 | RAD_ITS ---
STUDY: X-RAY CHEST REASON FOR EXAM: Male, 75 years old. PLACEMENT VERIFICATION TECHNIQUE: Single AP portable view of the chest. COMPARISON: 05/31/2021 at 1638 FINDINGS: Interval placement of endotracheal tube with the tip approximate 4 cm above the que. Interval placement of nasogastric tube with tip below the diaphragm. The lungs are clear and expanded. Elevated left hemidiaphragm. Normal size heart. Normal mediastinum and jamee. Normal visualized pulmonary arteries. Normal visualized aortic arch and descending thoracic aorta. Normal visualized thoracic spine. Normal visualized ribs, clavicles, and shoulders. There is no demonstrated abnormality of the visualized soft tissue structures of the upper abdomen. RAD/Chest 1 View (Portable) IMPRESSION: 1. Interval placement of endotracheal tube with the tip above the que. 2. Interval placement of nasogastric tube with tip below the diaphragm. 3. No active disease. Electronically Signed: Kana Montalvo MD at 17:54 EDT Tel , Service support ,
[2021-05-31 17:36] LABS: Lactic Acid 4.6 mmol/L (0.4-1.9)
--- NOTE | 2021-05-31 17:38 | ED.RN ---
PHYSICANS GAVE AN ETA OF THREE HOURS, OUTSOURCED WITH NO LUCK. NATHAN AT PHYSICIANS STATED THAT THEY CANNOT ACCEPT THE CALL YET WITHOUT HAVING AN ACCEPTING PHYSICAN.
--- NOTE | 2021-05-31 18:04 | ED.RN ---
PT IS NOW GOING TO [facility]. [facility] IS COMING TO [employer] WORKER THE PT VIA GROUND, PHYSICANS NOTIFIED THAT THEY NEED TO MEET THE CREW AT THE AIRPORT.
[2021-05-31 18:16] LABS: Alcohol, Blood (Medical)-Serum < 3.0 mg/dL
--- NOTE | 2021-05-31 18:20 | ED.RN ---
PT MOVING HIS FEET. BP IMPROVING
[2021-05-31 18:30] LABS: Base Excess -7 mmol/L (-2 to +2); Bicarbonate 17.9 mmol/L (22-26); Blood Gas Specimen Type ART; FI02 35; Mode AC; O2 Delivery Device Adult Vent; PEEP 5; PO2 93 mmHG (75-100); RR 12; SITE R Brach; SO2 97 % (95-99); Total Carbon Dioxide 19 mmol/L; Vt 450
[2021-05-31 18:40] LABS: Glucose 154 mg/dL (74-106)
[2021-05-31 18:43] LABS: BUN/Creat Ratio 29.2 RATIO (10-20); Creatinine, Serum 4.45 mg/dL (0.70-1.30); Estimated Creatinine Clearance 14.58 ml/min; Protein, Total 7.6 g/dL (6.4-8.2)
[2021-05-31 18:44] LABS: ALB/GLOB Ratio 0.6 RATIO (0.9-2.4); AST(SGOT) 37 U/L (15-37); Alanine Aminotransfer ALT/SGPT 40 U/L (16-61); Albumin, Serum 2.7 g/dL (3.2-5.0); Alkaline Phosphatase 101 U/L (45-117); Calcium,Total 8.9 mg/dL (8.5-10.1); Globulin 4.9 g/dL (2.2-4.2); Lipase 311 U/L (73-393)
--- NOTE | 2021-05-31 18:44 | ED.RN ---
SON AT THE BEDSIDE. PT MOVING FEET
[2021-05-31 18:45] LABS: Anion Gap 20 (5-15); Chloride 107 mmol/L (98-107); Potassium 4.1 mmol/L (3.5-5.1); Sodium Level 144 mmol/L (136-145); Thyroid Stim Hormone (TSH) 2.74 uIU/mL (0.358-3.74)
[2021-05-31 20:10] LABS: Reflex Lactate? Y
[2021-06-01 13:29] LABS: Pathologist Review Reviewed
[2021-06-07 17:00] LABS: BUN 130 mg/dL (7-18); EST Glomerular Filtration Rate 14 mL/min (>60); Est Glom Filt Rate - Afr Amer 17 mL/min (>60); Troponin-I HS 164 pg/mL (3.0-78.0)
== END 2021-05-31 19:32 | disposition short-term general hospital (02) ==
PROVIDERS: Emergency Medicine; Emergency Provider Emergency Medicine; PCP Family Medicine
DX: I60.9 Nontraumatic subarachnoid hemorrhage, unspecified (principal); N17.9 Acute kidney failure, unspecified; E86.0 Dehydration; I95.9 Hypotension, unspecified; E87.2 Acidosis; F17.210 Nicotine dependence, cigarettes, uncomplicated; Z87.440 Personal history of urinary (tract) infections
CPT/HCPCS: 31500; 36600; 51702; 70450; 71045; 72125; 72170; 73560; 80053; 81001; 82077; 82550; 82803; 82962; 83605; 83690; 83880; 84443; 84484; 85025; 85610; 85730; 87040; 87086; 87426; 93005; 94002; 96374; 96375; 99285; J7030; A4216; J0330